=== PATIENT | female | born 1970 | race Caucasian/White ===

== ENCOUNTER 2018-05-09 11:18 | Inpatient (IN) | payer OTHER ==
[~2018-05-09] VITALS: Ht 167.6 cm; Wt 89.8 kg
[2018-05-09 11:22] VITALS: Ht 167.6 cm; Wt 89.8 kg
[2018-05-09 12:08] LABS: UA SPECIFIC GRAVITY 1.025 (1.005-1.035); microscopic required? YES; urine erythrocyte 1+ (NEGATIVE)
[2018-05-09 12:14] LABS: PLATELET COUNT 214 x10^3mcL (130-400); RED CELL DISTRIBUTION WIDTH 13.6 % (11.5-14.5)
[2018-05-09 12:26] LABS: CALCIUM 8.8 mg/dL (8.5-10.1); CHLORIDE SERUM 99 mmol/L (98-107); CREATININE SERUM 0.8 mg/dL (0.6-1.0); GFR1 > 60 mL/min; GLUCOSE SERUM 121 mg/dL (74-106); POTASSIUM SERUM 3.8 mmol/L (3.5-5.1); SODIUM SERUM 133 mmol/L (136-145)
[2018-05-09 12:30] LABS: ALKALINE PHOSPHATASE 172 U/L (46-116); ALT/SGPT 120 U/L (14-59); AST/SGOT 81 U/L (15-37); BILIRUBIN TOTAL 0.2 mg/dL (0.20-1.00); LIPASE 64 IU/L (73-393); TOTAL PROTEIN, SERUM 7.7 g/dL (6.4-8.2)
[2018-05-09 12:33] LABS: ALBUMIN 3.1 g/dL (3.4-5.0)
[2018-05-09 12:52] LABS: BAND NEUTROPHIL 10 % (0-10); BASOPHIL 0 % (0-2); METAMYELOCTE 3 % (0-2); MONOCYTE 7 % (0-7); MYELOCYTE 1 % (0-2); SEGMENTED NEUTROPHILS 71 % (37-75)
[2018-05-09 14:43] LABS: T3 TOTAL 0.97 ng/mL
[2018-05-09 14:58] LABS: AMPHETAMINE QUAL UR POSITIVE (See below)
[2018-05-09 14:59] LABS: CHOLESTEROL/HDL RATIO 2.9; MAGNESIUM 2.3 mg/dL (1.8-2.4); PHOSPHOROUS 3.6 mg/dL (2.5-4.9)
[2018-05-09 15:07] LABS: FREE T4 1.11 ng/dL (0.76-1.46); FREE THYROXINE INDEX 2.3 ug/dL (1.4-4.5); T4(THYROXINE) 7.2 ug/dL (4.7-13.3)
[2018-05-09 15:22] VITALS: BP 116/73
[2018-05-09 16:36] VITALS: BP 115/65
[2018-05-09 21:27] VITALS: BP 110/60
[2018-05-10 06:45] VITALS: BP 104/59
[2018-05-10 06:53] LABS: PLATELET COUNT 237 x10^3mcL (130-400); RED CELL DISTRIBUTION WIDTH 13.9 % (11.5-14.5)
[2018-05-10 06:55] LABS: CALCIUM 8.3 mg/dL (8.5-10.1); CHLORIDE SERUM 100 mmol/L (98-107); CREATININE SERUM 0.8 mg/dL (0.6-1.0); GFR1 > 60 mL/min; GLUCOSE SERUM 126 mg/dL (74-106); MAGNESIUM 1.9 mg/dL (1.8-2.4); POTASSIUM SERUM 3.8 mmol/L (3.5-5.1); SODIUM SERUM 135 mmol/L (136-145)
[2018-05-10 07:53] LABS: BAND NEUTROPHIL 12 % (0-10); BASOPHIL 0 % (0-2); METAMYELOCTE 2 % (0-2); MONOCYTE 6 % (0-7); MYELOCYTE 1 % (0-2); SEGMENTED NEUTROPHILS 72 % (37-75)
[2018-05-10 09:30] VITALS: BP 102/62
[2018-05-10 17:25] VITALS: BP 100/60
[2018-05-10 20:36] VITALS: BP 104/71
[2018-05-11 06:07] VITALS: BP 105/60
[2018-05-11 06:32] VITALS: BP 100/64
[2018-05-11 08:12] VITALS: BP 93/57
[2018-05-11 09:35] LABS: CALCIUM 8.6 mg/dL (8.5-10.1); CARBON DIOXIDE 27.8 mmol/L (21-32); CHLORIDE SERUM 105 mmol/L (98-107); CREATININE SERUM 0.6 mg/dL (0.6-1.0); GFR1 > 60 mL/min; GLUCOSE SERUM 111 mg/dL (74-106); PLATELET COUNT 307 x10^3mcL (130-400); POTASSIUM SERUM 4.1 mmol/L (3.5-5.1); RED CELL DISTRIBUTION WIDTH 14.1 % (11.5-14.5); SODIUM SERUM 139 mmol/L (136-145)
[2018-05-11 11:45] VITALS: BP 105/66
[2018-05-11 14:03] LABS: BAND NEUTROPHIL 6 % (0-10); BASOPHIL 1 % (0-2); MONOCYTE 6 % (0-7); SEGMENTED NEUTROPHILS 82 % (37-75)
[2018-05-11 14:05] LABS: PLATELET MORPHOLOGY PLATELETS NORMAL; rbc morphology (normal/abnorm) NORMAL (NORMAL)
[2018-05-11 17:24] VITALS: BP 110/51
[2018-05-11 21:08] VITALS: BP 98/69
[2018-05-12 05:38] VITALS: BP 105/61
[2018-05-12 06:20] LABS: CALCIUM 8.3 mg/dL (8.5-10.1); CARBON DIOXIDE 24.7 mmol/L (21-32); CHLORIDE SERUM 105 mmol/L (98-107); CREATININE SERUM 0.6 mg/dL (0.6-1.0); GFR1 > 60 mL/min; GLUCOSE SERUM 110 mg/dL (74-106); POTASSIUM SERUM 3.9 mmol/L (3.5-5.1); SODIUM SERUM 138 mmol/L (136-145)
[2018-05-12 06:48] LABS: BASOPHIL % 0.4 % (0-2); PLATELET COUNT 331 x10^3mcL (130-400); RED CELL DISTRIBUTION WIDTH 13.6 % (11.5-14.5)
[2018-05-12 08:20] VITALS: BP 89/57
[2018-05-12] MEDS ORDERED: LEVAQUIN750 MG PO (12:37)
[2018-05-12] MEDS ORDERED: FLAGYL500 MG PO (12:37)
[2018-05-12 14:06] VITALS: BP 103/65
[2018-05-12 14:07] VITALS: BP 103/65
== END 2018-05-12 15:37 | disposition home or self-care (01) | DRG 720 ==
LOC: ED 11:18 → MU 13:59
PROVIDERS: Emergency Medicine; Family Medicine; Internal Medicine Gastroenterology
PROC: 0DBP8ZX Excision of Rectum, Via Natural or Artificial Opening Endoscopic, Diagnostic (ICD-10-PCS; principal; 2018-05-11 10:00)
PROC: 0DBE8ZZ Excision of Large Intestine, Via Natural or Artificial Opening Endoscopic (ICD-10-PCS; 2018-05-11 10:00)
DX: A41.9 Sepsis, unspecified organism (principal); C50.912 Malignant neoplasm of unspecified site of left female breast; E11.65 Type 2 diabetes mellitus with hyperglycemia; E87.1 Hypo-osmolality and hyponatremia; N39.0 Urinary tract infection, site not specified; K57.30 Diverticulosis of large intestine without perforation or abscess without bleeding; E83.51 Hypocalcemia; K62.9 Disease of anus and rectum, unspecified; K63.5 Polyp of colon; F17.210 Nicotine dependence, cigarettes, uncomplicated; Z92.21 Personal history of antineoplastic chemotherapy; Z90.710 Acquired absence of both cervix and uterus; Z71.6 Tobacco abuse counseling; Z90.49 Acquired absence of other specified parts of digestive tract; Z82.49 Family history of ischemic heart disease and other diseases of the circulatory system; Z80.3 Family history of malignant neoplasm of breast; Z79.84 Long term (current) use of oral hypoglycemic drugs
CPT/HCPCS: 45378; 82962; 83880; 84439; 87046; 87046-59; 99406; J0696; J1610; J1956; J2250; J2270; J2310; J2405; J2543; J3010; J3490; J7030; Q0092

== ENCOUNTER 2018-08-09 12:37 | Emergency (ER) | payer OTHER ==
[~2018-08-09] VITALS: Ht 167.6 cm; Wt 92.1 kg
[~2018-08-09 12:37] MED LIST: FLAGYL500 MG PO; LEVAQUIN750 MG PO
[2018-08-09 12:57] VITALS: Ht 167.6 cm; Wt 92.1 kg
[2018-08-09 13:14] LABS: microscopic required? YES; urine erythrocyte TRACE (NEGATIVE)
[2018-08-09 14:44] LABS: BASOPHIL % 0.5 % (0-2); PLATELET COUNT 250 x10^3mcL (130-400)
[2018-08-09 14:46] LABS: RED CELL DISTRIBUTION WIDTH 15.8 % (11.5-14.5)
[2018-08-09 14:47] LABS: CALCIUM 9.1 mg/dL (8.5-10.1); CARBON DIOXIDE 30.2 mmol/L (21-32); CHLORIDE SERUM 104 mmol/L (98-107); CREATININE SERUM 0.8 mg/dL (0.6-1.0); GFR1 > 60 mL/min; GLUCOSE SERUM 100 mg/dL (74-106); POTASSIUM SERUM 3.6 mmol/L (3.5-5.1); SODIUM SERUM 140 mmol/L (136-145)
[2018-08-09 14:52] LABS: ALKALINE PHOSPHATASE 127 U/L (46-116); ALT/SGPT 31 U/L (14-59); AST/SGOT 15 U/L (15-37); BILIRUBIN TOTAL 0.2 mg/dL (0.20-1.00); TOTAL PROTEIN, SERUM 7.1 g/dL (6.4-8.2)
[2018-08-09 14:54] LABS: ALBUMIN 3.3 g/dL (3.4-5.0)
[2018-08-09 16:25] VITALS: BP 99/65
== END 2018-08-09 16:25 | disposition home or self-care (01) ==
LOC: ED 12:37
PROVIDERS: Emergency Medicine
DX: N30.00 Acute cystitis without hematuria (principal); R60.0 Localized edema; Z85.3 Personal history of malignant neoplasm of breast; Z90.710 Acquired absence of both cervix and uterus
CPT/HCPCS: 36415

== ENCOUNTER 2018-08-15 12:41 | Inpatient (IN) | payer OTHER ==
[~2018-08-15] VITALS: Ht 167.6 cm; Wt 91.4 kg
[2018-08-15 12:53] VITALS: Ht 167.6 cm; Wt 91.4 kg
[2018-08-15 13:55] LABS: CALCIUM 8.6 mg/dL (8.5-10.1); CARBON DIOXIDE 27.4 mmol/L (21-32); CHLORIDE SERUM 101 mmol/L (98-107); CREATININE SERUM 0.8 mg/dL (0.6-1.0); GFR1 > 60 mL/min; GLUCOSE SERUM 157 mg/dL (74-106); SODIUM SERUM 137 mmol/L (136-145)
[2018-08-15 13:58] LABS: BASOPHIL % 0.4 % (0-2); PLATELET COUNT 235 x10^3mcL (130-400)
[2018-08-15 14:00] LABS: ALKALINE PHOSPHATASE 144 U/L (46-116); ALT/SGPT 35 U/L (14-59); AST/SGOT 20 U/L (15-37); BILIRUBIN TOTAL 0.31 mg/dL (0.20-1.00); TOTAL PROTEIN, SERUM 7.4 g/dL (6.4-8.2)
[2018-08-15 14:01] LABS: ALBUMIN 2.9 g/dL (3.4-5.0)
[2018-08-15 14:05] LABS: RED CELL DISTRIBUTION WIDTH 15.1 % (11.5-14.5)
[2018-08-15 16:00] LABS: UA SPECIFIC GRAVITY <=1.005 (1.005-1.035); microscopic required? YES; urine erythrocyte TRACE (NEGATIVE)
[2018-08-15] MEDS ORDERED: PEPCID20 MG PO (17:16)
[2018-08-15] MEDS ORDERED: BENADRYL ALLERG25 M1 PO (17:16)
[2018-08-15 18:24] LABS: MAGNESIUM 2.2 mg/dL (1.8-2.4); PHOSPHOROUS 4.1 mg/dL (2.5-4.9)
[2018-08-15 18:37] LABS: AMPHETAMINE QUAL UR POSITIVE (See below)
[2018-08-15 18:51] VITALS: BP 110/65
[2018-08-15 20:35] VITALS: BP 97/56
[2018-08-15 21:18] VITALS: BP 110/65
[2018-08-16 05:53] VITALS: BP 91/55
[2018-08-16 06:44] LABS: BASOPHIL % 0.5 % (0-2); PLATELET COUNT 212 x10^3mcL (130-400)
[2018-08-16 06:45] LABS: RED CELL DISTRIBUTION WIDTH 15.5 % (11.5-14.5)
[2018-08-16 06:47] LABS: CALCIUM 8.3 mg/dL (8.5-10.1); CARBON DIOXIDE 29.2 mmol/L (21-32); CHLORIDE SERUM 103 mmol/L (98-107); CREATININE SERUM 0.7 mg/dL (0.6-1.0); GFR1 > 60 mL/min; GLUCOSE SERUM 135 mg/dL (74-106); POTASSIUM SERUM 4.2 mmol/L (3.5-5.1); SODIUM SERUM 138 mmol/L (136-145)
[2018-08-16 09:03] VITALS: BP 89/44
[2018-08-16 09:35] VITALS: BP 93/58
[2018-08-16 16:49] VITALS: BP 91/49
[2018-08-16 21:24] VITALS: BP 100/61
[2018-08-17 06:03] VITALS: BP 101/56
[2018-08-17 07:05] LABS: BASOPHIL % 0.4 % (0-2); PLATELET COUNT 242 x10^3mcL (130-400)
[2018-08-17 07:11] LABS: RED CELL DISTRIBUTION WIDTH 15.1 % (11.5-14.5)
[2018-08-17 07:34] LABS: CALCIUM 8.9 mg/dL (8.5-10.1); CARBON DIOXIDE 28.1 mmol/L (21-32); CHLORIDE SERUM 104 mmol/L (98-107); CREATININE SERUM 0.7 mg/dL (0.6-1.0); GFR1 > 60 mL/min; GLUCOSE SERUM 116 mg/dL (74-106); MAGNESIUM 2.2 mg/dL (1.8-2.4); PHOSPHOROUS 3.8 mg/dL (2.5-4.9); POTASSIUM SERUM 4.3 mmol/L (3.5-5.1); SODIUM SERUM 139 mmol/L (136-145)
[2018-08-17 09:03] VITALS: BP 95/63
[2018-08-17] MEDS ORDERED: TRAMADOL HCL50 MG PO (15:32)
[2018-08-17 15:43] VITALS: BP 93/49
== END 2018-08-17 16:44 | disposition home or self-care (01) | DRG 347 ==
LOC: ED 12:41 → MU 17:13
PROVIDERS: Emergency Medicine; Internal Medicine; ADMIT General Practice
PROC: 0DBN8ZX Excision of Sigmoid Colon, Via Natural or Artificial Opening Endoscopic, Diagnostic (ICD-10-PCS; principal; 2018-08-17 13:00)
DX: M51.26 Other intervertebral disc displacement, lumbar region (principal); C79.9 Secondary malignant neoplasm of unspecified site; D68.69 Other thrombophilia; C50.912 Malignant neoplasm of unspecified site of left female breast; K57.90 Diverticulosis of intestine, part unspecified, without perforation or abscess without bleeding; E11.9 Type 2 diabetes mellitus without complications; G89.3 Neoplasm related pain (acute) (chronic); J98.11 Atelectasis; F15.10 Other stimulant abuse, uncomplicated; F11.10 Opioid abuse, uncomplicated; Z68.32 Body mass index [BMI] 32.0-32.9, adult; Z87.440 Personal history of urinary (tract) infections; Z90.710 Acquired absence of both cervix and uterus; Z82.49 Family history of ischemic heart disease and other diseases of the circulatory system; Z80.3 Family history of malignant neoplasm of breast; Z59.0 Homelessness
CPT/HCPCS: 45330; 82962; J1200; J1610; J2250; J2270; J2310; J2405; J3010; J3490; J7030; Q0163; Q9967

== ENCOUNTER 2018-11-14 09:51 | Inpatient (IN) | payer OTHER ==
[~2018-11-14] VITALS: Ht 167.6 cm; Wt 91.8 kg
[~2018-11-14 09:51] MED LIST changes: +BENADRYL ALLERG25 M1 PO; +PEPCID20 MG PO; +TRAMADOL HCL50 MG PO
[2018-11-14 09:53] VITALS: Ht 167.6 cm; Wt 91.8 kg
[2018-11-14 12:56] LABS: BASOPHIL % 0.6 % (0-2); PLATELET COUNT 310 x10^3mcL (130-400)
[2018-11-14 13:03] LABS: CALCIUM 8.9 mg/dL (8.5-10.1); CARBON DIOXIDE 30.8 mmol/L (21-32); CHLORIDE SERUM 103 mmol/L (98-107); CREATININE SERUM 0.7 mg/dL (0.6-1.0); GFR1 > 60 mL/min; GLUCOSE SERUM 105 mg/dL (74-106); POTASSIUM SERUM 3.9 mmol/L (3.5-5.1); SODIUM SERUM 137 mmol/L (136-145)
[2018-11-14 13:07] LABS: RED CELL DISTRIBUTION WIDTH 18.3 % (11.5-14.5)
[2018-11-14 13:08] LABS: ALBUMIN 3.6 g/dL (3.4-5.0); ALKALINE PHOSPHATASE 118 U/L (46-116); ALT/SGPT 64 U/L (14-59); AST/SGOT 39 U/L (15-37); BILIRUBIN TOTAL 0.28 mg/dL (0.20-1.00); TOTAL PROTEIN, SERUM 7.9 g/dL (6.4-8.2)
[2018-11-14] MEDS ORDERED: BENADRYL ALLERG25 M1 PO (13:08)
[2018-11-14] MEDS ORDERED: ZOF4 PO (13:08)
[2018-11-14] MEDS ORDERED: PEP20I (13:08)
[2018-11-14 13:40] VITALS: BP 102/72
[2018-11-14 14:04] LABS: FREE T4 0.94 ng/dL (0.76-1.46); FREE THYROXINE INDEX 2.7 ug/dL (1.4-4.5); T4(THYROXINE) 8.5 ug/dL (4.7-13.3)
[2018-11-14 14:55] LABS: T3 TOTAL 1.05 ng/mL
[2018-11-14 16:45] VITALS: BP 109/76
[2018-11-14 20:18] VITALS: BP 106/70
[2018-11-14 20:38] LABS: UA SPECIFIC GRAVITY >=1.030 (1.005-1.035); microscopic required? YES; urine erythrocyte TRACE (NEGATIVE)
[2018-11-15 06:59] LABS: BASOPHIL % 0.5 % (0-2); PLATELET COUNT 292 x10^3mcL (130-400)
[2018-11-15 07:20] VITALS: BP 103/66
[2018-11-15 07:33] LABS: CALCIUM 8.5 mg/dL (8.5-10.1); CARBON DIOXIDE 28.2 mmol/L (21-32); CHLORIDE SERUM 103 mmol/L (98-107); CREATININE SERUM 0.7 mg/dL (0.6-1.0); GFR1 > 60 mL/min; GLUCOSE SERUM 108 mg/dL (74-106); MAGNESIUM 1.8 mg/dL (1.8-2.4); POTASSIUM SERUM 4.3 mmol/L (3.5-5.1); SODIUM SERUM 136 mmol/L (136-145)
[2018-11-15 07:44] LABS: RED CELL DISTRIBUTION WIDTH 18.9 % (11.5-14.5)
[2018-11-15 07:48] VITALS: BP 104/59
[2018-11-15 16:27] VITALS: BP 99/66
[2018-11-15 20:34] VITALS: BP 95/63
[2018-11-16 05:48] VITALS: BP 92/66
[2018-11-16 08:45] VITALS: BP 95/64
[2018-11-16 17:20] VITALS: BP 100/61
[2018-11-16 17:23] VITALS: BP 95/64
[2018-11-16 21:49] VITALS: BP 129/63
[2018-11-17 05:45] VITALS: BP 94/62
[2018-11-17 08:41] VITALS: BP 102/69
[2018-11-17 17:32] VITALS: BP 108/67; BP 95/64
[2018-11-17 17:47] VITALS: BP 108/67
== END 2018-11-18 00:10 | DRG 347 ==
LOC: ED 09:51 → MU 12:48
PROVIDERS: Emergency Medicine; ADMIT Family Medicine
DX: M54.89 Other dorsalgia (principal); Z85.3 Personal history of malignant neoplasm of breast; Z90.710 Acquired absence of both cervix and uterus; Z92.21 Personal history of antineoplastic chemotherapy
CPT/HCPCS: 84439; J2270; J3010; J3490; Q0163

== ENCOUNTER 2019-01-26 12:43 | Emergency (ER) | payer OTHER ==
[~2019-01-26] VITALS: Ht 167.6 cm; Wt 88.0 kg
[~2019-01-26 12:43] MED LIST changes: +PEP20I; +ZOF4 PO
[2019-01-26 12:50] VITALS: Ht 167.6 cm; Wt 88.0 kg
[2019-01-26 14:35] VITALS: BP 111/77
== END 2019-01-26 14:35 | disposition home or self-care (01) ==
LOC: ED 12:43
DX: M54.5 Low back pain (principal); G89.29 Other chronic pain; Z85.3 Personal history of malignant neoplasm of breast; Z90.710 Acquired absence of both cervix and uterus
CPT/HCPCS: J1885

== ENCOUNTER 2019-11-06 12:22 | Emergency (ER) | payer OTHER ==
[~2019-11-06] VITALS: Ht 167.6 cm; Wt 93.0 kg
[2019-11-06 12:29] VITALS: Ht 167.6 cm; Wt 93.0 kg
[2019-11-06 15:08] VITALS: BP 141/89
== END 2019-11-06 15:08 | disposition home or self-care (01) ==
LOC: ED 12:22
DX: G89.29 Other chronic pain (principal); R51 Headache; Z90.710 Acquired absence of both cervix and uterus; Z90.89 Acquired absence of other organs; Z85.3 Personal history of malignant neoplasm of breast
CPT/HCPCS: J1885; J2270; Q0092; Q0162